=== PATIENT | female | born 1980 | race Caucasian/White ===

== ENCOUNTER 2016-05-20 09:51 | Inpatient (IN) | payer MEDICAID ==
--- NOTE | 2016-05-20 08:23 | P.HPOB ---
History of Present Illness H&P Date: 05/20/16 Chief Complaint: Intrauterine at term: Previous section Sandra is a 36-year-old G3 6 the one at 39 weeks gestation arise for repeat section. Risks benefits versus procedure were discussed with the patient in detail and all questions have been answered for her prior to proceeding to the operating room. Principal course generally speaking otherwise has been unremarkable. She also desires permanent sterilization and is scheduled for tube ligation. She has been receiving nonstress test to 2 drinks maternal age. Pertinent labs do include A+ blood type Rh antibody negative rubella immune, hepatitis B surface antigen and RPR were both negative. Past Medical History Additional Past Medical History / Comment(s): "blood clotting problem" pt is not aware of name of clotting problem History of Any Multi-Drug Resistant Organisms: None Reported Past Surgical History: Section Additional Past Surgical History / Comment(s): 2- D&Cs Past Anesthesia/Blood Transfusion Reactions: No Reported Reaction Past Psychological History: No Psychological Hx Reported Smoking Status: Former smoker Past Alcohol Use History: None Reported Additional Past Alcohol Use History / Comment(s): smoked 5 years 5cig/d quit when found out that she was Past Drug Use History: None Reported - Past Family History Father Sister(s) Family Medical History: Deep Vein Thrombosis (DVT) Medications and Allergies Home Medications Medication Instructions Recorded Confirmed Type Aspirin [Adult Low Dose Aspirin EC] 81 mg PO DAILY 05/12/16 05/12/16 History Folic Acid 0.4 mg PO DAILY 05/12/16 05/12/16 History Pnv with Ca,No.72/Iron/FA 1 each PO DAILY 05/12/16 05/12/16 History [ Plus Tablet] Vitamin E (Dl,Tocopheryl Acet) 400 unit PO DAILY 05/12/16 05/12/16 History [Vitamin E] Allergies Allergy/AdvReac Type Severity Reaction Status Date / Time No Known Allergies Allergy Verified 05/12/16 12:43 Exam Osteopathic Statement: *. No significant issues noted on an osteopathic structural exam other than those noted in the History and Physical/Consult. - OBG Physical Exam Breast: both: normal (no masses) Abdomen: bowel sounds normal, no diffuse tenderness, no bruit present, no guarding noted, no hepatomegaly, no splenomegaly, no mass Vulva: both: normal Vagina: normal moisture, no discharge Cervix: no lesion, no discharge Uterus: normal size, normal contour Adnexa: both: normal Anus/Rectum: normal perianal skin, no rectal mass, no hemorrhoids, heme negative
[~2016-05-20 09:51] MED LIST: CITRIC ACID-SODIUM CITRATE 15 ML CUP PO ONE; ceFAZolin 2 GM in SODIUM CHLORIDE 0.9% 100 ML IVPB ONE
[2016-05-20 10:22] VITALS: BMI 40.8
[2016-05-20 11:15] LABS: Basophils % (A) 0 %; CH 31.8; CHCM 35.7; Eosinophils % (A) 0 %; HCT 39.7 % (34.0-46.0); HDW 3.21; HGB 13.7 gm/dL (11.4-16.0); Luc % (Auto) 1; Lymphocytes # (A) 0.9 k/uL (1.0-4.8); Lymphocytes % (A) 10 %; MCH 30.9 pg (25.0-35.0); MCHC 34.4 g/dL (31.0-37.0); MCV 89.7 fL (80.0-100.0); Mean Platelet Volume 7.3; Monocytes # (A) 0.3 k/uL (0-1.0); Monocytes % (A) 3 %; Neutrophils # (A) 7.6 k/uL (1.3-7.7); Neutrophils % (A) 85 %; RBC 4.43 m/uL (3.80-5.40); RDW 14.4 % (11.5-15.5); WBC 8.9 k/uL (3.8-10.6); WBC (Perox) 9.17
[2016-05-20] MEDS ORDERED: MORPHINE SULFATE (PF) 0.3 MG/0.3 ML SYR ONE (12:47)
[2016-05-20] MEDS ORDERED: KETOROLAC 30 MG/ML 1 ML VIAL ONE (12:47)
[2016-05-20] MEDS ORDERED: ONDANSETRON 4 MG/2 ML VIAL ONE (12:47)
[2016-05-20] MEDS ORDERED: OXYTOCIN 10 UNIT/ML 1 ML VIAL IM ONE (12:47)
[2016-05-20] MEDS ORDERED: NALBUPHINE 10 MG/ML AMPUL ONE (12:47)
[2016-05-20] MEDS ORDERED: MORPHINE SULFATE 4 MG/ML SYRINGE IVP PRN (13:18)
[2016-05-20] MEDS ORDERED: diphenhydrAMINE 50 MG/ML 1 ML VIAL IVP PRN ×3 (13:18→13:38)
[2016-05-20] MEDS ORDERED: ONDANSETRON 4 MG/2 ML VIAL IVP PRN (13:18)
[2016-05-20] MEDS ORDERED: NALOXONE 0.4 MG/ML 1 ML VIAL IV PRN (13:18)
[2016-05-20] MEDS ORDERED: METOCLOPRAMIDE 5 MG/ML 2 ML VIAL IVP PRN (13:38)
[2016-05-20] MEDS ORDERED: ZOLPIDEM 5 MG TAB PO PRN (13:38)
[2016-05-20] MEDS ORDERED: diphenhydrAMINE 50 MG CAP PO PRN (13:38)
[2016-05-20] MEDS ORDERED: ACETAMINOPHEN TAB 325 MG TAB PO PRN (13:38)
[2016-05-20] MEDS ORDERED: Acetaminophen-Codeine 300-30mg TAB PO PRN (13:38)
[2016-05-20] MEDS ORDERED: diphenhydrAMINE 25 MG CAP PO PRN (13:38)
--- NOTE | 2016-05-20 13:43 | P.OP ---
Date of Procedure: 05/20/16 Preoperative Diagnosis: Intrauterine : Prior section: Family planning Postoperative Diagnosis: Same Procedure(s) Performed: Repeat low transverse section with bilateral partial salpingectomy Anesthesia: spinal Surgeon: Dayne Franco Adjunct Psychology Instructor #1: Mahendra Zheng Estimated Blood Loss (ml): 600 IV fluids (ml): 1,000 Urine output (ml): 200 Pathology: other (Placenta) Condition: stable Disposition: floor Operative Findings: Male scores of 9 and 9 at one and 5 minutes respectfully weight was 9 lbs. 5 oz. Description of Procedure: Patient was taken to the operating suite where a spinal anesthetic was found be adequate. She was prepped and draped in the normal sterile fashion and placed in the dorsal supine position with leftward tilt. Initially a Pfannenstiel skin incision was made. This incision was then carried through to underlying layer of the fascia with a second knife. Fascia was then nicked in the midline and this opening was extended laterally with Akers scissors. Superior and inferior aspect of this incision were then grasped tented up and bluntly and sharply dissected off the rectus muscles. Rectus muscles were then divided the midline and sharp dissection to the peritoneum was made. This opening was then extended superiorly and inferiorly with good visualization of both bowel bladder. Bladder blade was placed and the ladder flap was identified grasped pickups and entered with Metzenbaum scissors this opening was then extended across face of the uterus with Metzenbaum scissors and the bladder flap was fully created. Knife was then used to incise uterus once incision was created hemostat was used to open the incision fully and the incision was extended bluntly. Head was then H medically delivered from left occiput transverse position. Once head was delivered mouth nares were bulb suctioned anterior posterior shoulders were easily then delivered followed by the remainder the baby. Mouth nares were bulb suctioned and nursery personnel was present to assume care. Umbilical cord was clamped cut usual fashion. Placenta was then delivered intact and Pitocin was added to the IV. Uterus was then exteriorized cleared of clots and debris and closed in 1 layer with 0 Vicryl suture. Once excellent hemostasis was obtained 3-0 Vicryl used to reapproximate the bladder flap. Sloping tubes were then identified first the right tube than the left tube had a hemostat clamped to to 3 cm from uterine cornu. A window was then created in the mesosalpinx with Bovie cautery and 2 proximal to distal 2-0 silk sutures were placed. The intervening approximately 1/2-2 cm length segment was excised and tips were cauterized. Blood and debris was then suctioned from the posterior cul-de-sac and the uterus was reinserted into the abdomen. Peritoneal layer was then closed Lobac suture fascial layer was closed Lobac suture one layer of 3-0 Vicryl was used to reapproximate skin and the skin was then closed with 3-0 Vicryl on a Joey needle. Sponge, lap, needle counts were all correct 2. Patient was then taken to the recovery room in stable and satisfactory condition.
[2016-05-20] MEDS: LACTATED RINGERS 1,000 ML IV SCH ×3 (14:43→19:57)
[2016-05-20] MEDS: KETOROLAC 30 MG/ML 1 ML VIAL IVP PRN (16:35)
[2016-05-20] MEDS: OXYTOCIN 30 UNITS/500 ML NS 30 UNIT in SALINE 1 500ML.BAG IV SCH (19:57)
[2016-05-21] MEDS: KETOROLAC 30 MG/ML 1 ML VIAL IVP PRN (04:11)
--- NOTE | 2016-05-21 08:17 | P.PN ---
Progress Note - Text Date: 05/21/2016 Time: 728 The patient is status post section Vital signs stable VAS: 0-10 Patient has no complaints of pain. The patient incurred some minimal itching yesterday, this itching is now subsiding. Pain meds to be managed by service.
[2016-05-21 08:22] LABS: Basophils % (A) 0 %; CH 31.8; CHCM 35.2; Eosinophils # (A) 0.1 k/uL (0-0.7); Eosinophils % (A) 1 %; HCT 38.6 % (34.0-46.0); HDW 3.12; HGB 13.3 gm/dL (11.4-16.0); Luc # (Auto) 0.08; Luc % (Auto) 1; Lymphocytes # (A) 0.7 k/uL (1.0-4.8); Lymphocytes % (A) 7 %; MCH 31.2 pg (25.0-35.0); MCHC 34.4 g/dL (31.0-37.0); MCV 90.8 fL (80.0-100.0); Mean Platelet Volume 7.1; Monocytes # (A) 0.3 k/uL (0-1.0); Monocytes % (A) 3 %; Neutrophils # (A) 8.6 k/uL (1.3-7.7); Neutrophils % (A) 88 %; RBC 4.26 m/uL (3.80-5.40); RDW 14.3 % (11.5-15.5); WBC 9.7 k/uL (3.8-10.6); WBC (Perox) 10.42
[2016-05-21] MEDS: SENNOSIDES-DOCUSATE SODIUM 1 EACH TAB PO SCH (08:24)
--- NOTE | 2016-05-21 09:04 | P.PNOBGPC ---
Subjective - Subjective Principal diagnosis: post op day 1 Interval history: doing very well voices no c/o Objective - Vital Signs Latest vital signs: Vital Signs Temp Pulse Resp BP Pulse Ox 05/21/16 04:00 98.1 F 77 14 119/66 05/20/16 23:46 97.9 F 86 16 113/59 05/20/16 19:53 97.4 F L 87 16 109/62 96 05/20/16 16:00 97.3 F L 92 18 131/73 05/20/16 15:49 97.3 F L 92 20 131/73 05/20/16 15:19 76 16 124/63 05/20/16 14:49 97.5 F L 80 20 119/70 05/20/16 14:34 71 20 129/70 05/20/16 14:19 74 20 118/62 05/20/16 14:18 74 20 118/62 98 05/20/16 14:12 75 20 123/71 05/20/16 14:04 76 20 123/71 05/20/16 14:00 98 05/20/16 13:49 97.5 F L 83 20 118/65 05/20/16 10:10 98.3 F 71 16 123/65 Intake and Output 05/20/16 05/21/16 05/21/16 22:59 06:59 14:59 Intake Total 600 Output Total 3400 800 Balance -3400 -200 Intake: IV 600 Invasive Line 1 600 Output: Urine 3400 800 Uretheral ([place]) 800 Other: # Voids 1 - Exam Lungs: bilateral: normal Chest: Normal S1, Normal S2 Extremities: Present: normal Abdomen: Present: normal appearance, soft. Absent: distention, tenderness Incision: Present: normal, dry, intact Uterus: Present: normal, firm - Labs Labs: Abnormal Lab Results - Last 24 Hours (Table) 05/20/16 05/21/16 Range/Units 10:53 07:53 Plt Count 146 L (150-450) k/uL Neutrophils # 8.6 H (1.3-7.7) k/uL Lymphocytes # 0.9 L 0.7 L (1.0-4.8) k/uL
[2016-05-21 09:20] VITALS: RESP 16
[2016-05-21] MEDS: IBUPROFEN 600 MG TAB PO PRN (13:07)
[2016-05-21] MEDS: Acetaminophen-Codeine 300-30mg TAB PO PRN (21:40)
[2016-05-22] MEDS: SENNOSIDES-DOCUSATE SODIUM 1 EACH TAB PO SCH ×2 (02:58→07:13)
[2016-05-22] MEDS: LACTATED RINGERS 1,000 ML IV SCH (02:59)
[2016-05-22] MEDS: Acetaminophen-Codeine 300-30mg TAB PO PRN (07:13)
[2016-05-22 07:21] VITALS: BP 119/70; PULSE 78; TEMP 97.3
[2016-05-22] MEDS: IBUPROFEN 600 MG TAB PO PRN (10:32)
--- NOTE | 2016-05-22 13:21 | P.DS ---
Providers Date of admission: 05/20/16 09:51 Expected date of discharge: 05/22/16 Attending physician: Dayne Franco Primary care physician: Stated None Hospital Course: Shows doing very well postop day 2. She is ambulating, voiding and she is tolerating her diet. She voices no complaints. Her vital signs are stable and afebrile. Heart regular, lungs clear, extremities without pain. Her abdomen is soft her incision is clean dry and intact will plan discharged home today and to follow-up with me in 1 week. She is aware to have no heavy lifting, limit stairs and driving and pelvic rest. If any high temperatures, heavy bleeding, or severe pain she will notify our office. All other questions are answered for her at this time prescription for narcotic pain reliever and Motrin provided provided. She is stable For discharge this time Patient Condition at Discharge: Good Plan - Discharge Summary New Discharge Prescriptions: Acetaminophen-Codeine 300-30mg [Tylenol #3] 1 tab PO Q4H PRN #30 tablet PRN Reason: Pain Ibuprofen [Motrin] 600 mg PO Q6HR PRN #30 tab PRN Reason: Pain Discharge Medication List Aspirin [Adult Low Dose Aspirin EC] 81 mg PO DAILY 05/12/16 [History] Folic Acid 0.4 mg PO DAILY 05/12/16 [History] Pnv with Ca,No.72/Iron/FA [ Plus Tablet] 1 each PO DAILY 05/12/16 [ History] Vitamin E (Dl,Tocopheryl Acet) [Vitamin E] 400 unit PO DAILY 05/12/16 [History] Acetaminophen-Codeine 300-30mg [Tylenol #3] 1 tab PO Q4H PRN #30 tablet [Rx] Ibuprofen [Motrin] 600 mg PO Q6HR PRN #30 tab 05/22/16 [Rx] Follow up Appointment(s)/Referral(s): Dayne Franco DO [Doctor of Osteopathic Medicine] - 1 Week Activity/Diet/Wound Care/Special Instructions: Post section limitations and restrictions discussed with patient and she provided Discharge Disposition: HOME SELF-CARE
== END 2016-05-22 16:45 | disposition home or self-care (01) | DRG 766 ==
LOC: 4FBP 09:51
PROVIDERS: ADMIT Obstetrics & Gynecology; ATTEND Obstetrics & Gynecology
PROC: 10D00Z1 Extraction of Products of Conception, Low, Open Approach (ICD-10-PCS; principal; 2016-05-20 12:39)
PROC: 0UB70ZZ Excision of Bilateral Fallopian Tubes, Open Approach (ICD-10-PCS; principal; 2016-05-20 12:39)
DX: O34.211 Maternal care for low transverse scar from previous cesarean delivery (principal); Z87.891 Personal history of nicotine dependence; Z37.0 Single live birth; Z30.2 Encounter for sterilization; Z3A.39 39 weeks gestation of pregnancy; Z79.82 Long term (current) use of aspirin
CPT/HCPCS: 85025; 86850; 86900; 86901; 88302; 88307